=== PATIENT | female | born 1945 | race Caucasian/White ===

== ENCOUNTER 2023-10-05 10:24 | Day surgery (SDC) | payer OTHER, BC ==
[2023-10-03 10:06] VITALS: BMI 35.4
[2023-10-05] MEDS: CIPROFLOXACIN HCL 0.3% OPHTH 2.5ML BOTTLE ONE ×3 (10:55→11:10)
[2023-10-05] MEDS: TROPICAMIDE 1% OPHTH SOLN 15 ML BOTTLE ONE ×3 (10:55→11:05)
[2023-10-05] MEDS: PHENYLEPHRINE 2.5% OPTHALMIC DROP 2ML BOTTLE ONE ×3 (10:55→11:05)
[2023-10-05] MEDS: CYCLOPENTOLATE 2% OPHTH SOLN 2 ML BOTTLE ONE ×3 (10:55→11:05)
[2023-10-05] MEDS ORDERED: NEO/POLYMYX B SULF/DEXAMETH OPHTHALMIC 5ML BOTTLE ONE (10:56)
[2023-10-05] MEDS ORDERED: LIDOCAINE 1% P/F 10 MG/ML VIAL ONE (10:56)
[2023-10-05] MEDS ORDERED: BSS (NA/CA/MG/K) BALANCED SALT SOLUTION OPHTH SOLN 15 ML BOTTLE ONE (10:56)
[2023-10-05] MEDS ORDERED: TETRACAINE 0.5% OPHTH SOLN 2 ML BOTTLE ONE (10:56)
[2023-10-05] MEDS ORDERED: CARBACHOL 0.01% INTRA-OCULAR 1.5 ML VIAL ONE (10:56)
[2023-10-05 11:22] VITALS: TEMP 97.8
[2023-10-05] MEDS ORDERED: MIDAZOLAM HCL 2 MG/2 ML SINGLE DOSE VIAL ONE (12:46)
[2023-10-05 13:47] VITALS: RESP 19
[2023-10-05 13:55] VITALS: BP 149/50; PULSE 64
== END 2023-10-05 13:55 | disposition home or self-care (01) ==
LOC: FASU 10:24
PROVIDERS: ATTEND Ophthalmology
PROC: 08RJ3JZ Replacement of Right Lens with Synthetic Substitute, Percutaneous Approach (ICD-10-PCS; principal; 2023-10-05 12:52)
DX: H26.8 Other specified cataract (principal)
CPT/HCPCS: 66984; V2632

== ENCOUNTER 2023-11-30 11:40 | Day surgery (SDC) | payer OTHER, BC ==
[2023-11-24 11:15] VITALS: BMI 35.4
[2023-11-30] MEDS ORDERED: BSS (NA/CA/MG/K) BALANCED SALT SOLUTION OPHTH SOLN 15 ML BOTTLE ONE (11:58)
[2023-11-30] MEDS ORDERED: NEO/POLYMYX B SULF/DEXAMETH OPHTHALMIC 5ML BOTTLE ONE (11:58)
[2023-11-30] MEDS ORDERED: LIDOCAINE 1% P/F 10 MG/ML VIAL ONE (11:58)
[2023-11-30] MEDS ORDERED: CARBACHOL 0.01% INTRA-OCULAR 1.5 ML VIAL ONE (11:58)
[2023-11-30] MEDS ORDERED: TETRACAINE 0.5% OPHTH SOLN 2 ML BOTTLE ONE (11:58)
[2023-11-30] MEDS: TROPICAMIDE 1% OPHTH SOLN 15 ML BOTTLE OS ONE ×3 (12:10→12:20)
[2023-11-30] MEDS: CIPROFLOXACIN 0.3% EYE DROPS 5 ML BOTTLE OS ONE ×3 (12:10→12:20)
[2023-11-30] MEDS: CYCLOPENTOLATE 2% OPHTH SOLN 2 ML BOTTLE OS ONE ×3 (12:10→12:20)
[2023-11-30] MEDS: PHENYLEPHRINE 2.5% OPHTH SOLN 15 ML BOTTLE OS ONE ×3 (12:10→12:20)
[2023-11-30] MEDS ORDERED: MIDAZOLAM HCL 2 MG/2 ML SINGLE DOSE VIAL ONE (13:42)
[2023-11-30 14:55] VITALS: TEMP 97.1
[2023-11-30 14:57] VITALS: BP 134/68; PULSE 68; RESP 19
== END 2023-11-30 15:10 | disposition home or self-care (01) ==
LOC: FASU 11:40
PROVIDERS: ATTEND Ophthalmology
PROC: 08RK3JZ Replacement of Left Lens with Synthetic Substitute, Percutaneous Approach (ICD-10-PCS; principal; 2023-11-30 14:06)
DX: H26.8 Other specified cataract (principal)
CPT/HCPCS: 66984; V2632; 82962